=== PATIENT | female | born 1970 | race Hispanic/Latino ===

== ENCOUNTER 2018-11-19 07:24 | Emergency (ER) | payer OTHER ==
[~2018-11-19 07:24] MED LIST: CLON0.5T23 PO; LEVO100T12 PO
[2018-11-19] MEDS ORDERED: TETRACAINE HCL 0.5% 4 ML OPHTH SOLN ONE (07:39)
[2018-11-19] MEDS ORDERED: NA BORATE/BORIC AC/H2O/NACL 120 ML OPHTH IRRIG SOLN ONE (07:40)
[2018-11-19] MEDS ORDERED: FLUORESCEIN SODIUM 1 STRIP STRIP ONE (07:40)
== END 2018-11-19 08:03 | disposition home or self-care (01) ==
LOC: EDH 07:24
DX: H10.13 Acute atopic conjunctivitis, bilateral (principal); E07.9 Disorder of thyroid, unspecified

== ENCOUNTER 2019-03-05 15:47 | Inpatient (IN) | payer OTHER ==
[2019-03-05 16:26] LABS: BASOPHILS % (AUTO) 0.4 % (0.0-5.0); EOSINOPHILS % (AUTO) 0.1 % (0.0-8.0); HEMATOCRIT 37.9 % (36-48); LYMPHOCYTES % (AUTO) 7.8 % (21.0-51.0); MEAN CORPUSCULAR HEMOGLOBIN 30.5 pg (27.0-33.0); MEAN CORPUSCULAR HGB CONC 33.8 g/dL (32.0-36.0); MEAN CORPUSCULAR VOLUME 90.5 fL (79-99); MONOCYTES % (AUTO) 6.8 % (3.0-13.0); NEUTROPHILS % (AUTO) 84.9 % (40.0-77.0); PLATELET COUNT (AUTO) 326 K/uL (130-400); RED BLOOD CELL COUNT(AUTO) 4.19 MIL/uL (4.00-5.50); RED CELL DISTRIBUTION WIDTH 12.6 % (11.0-15.5); WHITE BLOOD COUNT (AUTO) 13.3 K/uL (4.8-10.8)
[2019-03-05 16:33] LABS: BILIRUBIN,URINE Negative (NEGATIVE); COLOR,URINE Yellow (YELLOW); GLUCOSE, URINE (UA) Negative (NEGATIVE); KETONES,URINE Negative (NEGATIVE); LEUKOCYTE ESTERASE ,URINE Large (NEGATIVE); NITRATE,URINE Negative (NEGATIVE); OCCULT BLOOD,URINE Trace (NEGATIVE); PROTEIN,URINE Negative (NEGATIVE); UROBILINOGEN,URINE 0.2 mg/dL (0.2-1.0)
[2019-03-05 16:36] LABS: CREATININE 0.8 mg/dL (0.5-1.5); POTASSIUM 3.7 mmol/L (3.5-5.1)
[2019-03-05 16:40] LABS: ALBUMIN 3.8 g/dL (3.5-5.0); APPEARANCE,URINE SLIGHTLY CLOUDY (CLEAR); BILIRUBIN,DIRECT 0.1 mg/dL (0.0-0.3); BILIRUBIN,TOTAL 0.6 mg/dL (0.2-1.0); TOTAL PROTEIN, SERUM 7.8 g/dL (6.0-8.3)
[2019-03-05 16:43] LABS: BACTERIA,URINE Rare /HPF (None Seen); SQUAMOUS EPITHELIAL CELL,UR Few /HPF (0-2)
[2019-03-05] MEDS ORDERED: KETOROLAC TROMETHAMINE 30MG/ML ONE (17:09)
[2019-03-05] MEDS ORDERED: SODIUM CHLORIDE 0.9% 1000ML 1,000 ML IV ONE (17:09)
[2019-03-05] MEDS ORDERED: METRONIDAZOLE 500MG/100ML BAG 100 ML ONE (20:05)
[2019-03-05] MEDS ORDERED: LEVOFLOXACIN 500 MG/D5W 100 ML 100 ML ONE (21:26)
[2019-03-05] MEDS ORDERED: SODIUM CHLORIDE 0.9% 1000ML 1,000 ML IV SCH (22:51)
[2019-03-05] MEDS: METRONIDAZOLE 500MG/100ML BAG 100 ML IV SCH (23:00)
[2019-03-05] MEDS ORDERED: LEVOFLOXACIN 500 MG/D5W 100 ML 100 ML IV SCH (23:00)
[2019-03-05] MEDS ORDERED: ACETAMINOPHEN 325 MG TAB PO PRN ×2 (23:00)
[2019-03-05] MEDS ORDERED: ONDANSETRON HCL 4 MG/2 ML VIAL IV PRN (23:00)
[2019-03-06] MEDS ORDERED: METRONIDAZOLE 500MG/100ML BAG 100 ML ONE (05:08)
[2019-03-06] MEDS ORDERED: SODIUM CHLORIDE 0.9% 1000ML 1,000 ML IV ONE (05:08)
[2019-03-06] MEDS: METRONIDAZOLE 500MG/100ML BAG 100 ML IV SCH (07:00)
[2019-03-06] MEDS ORDERED: METR500T PO (08:20)
[2019-03-06] MEDS ORDERED: LEVO500T2 PO (08:20)
[2019-03-06] MEDS ORDERED: LORA1TAB3 PO (08:59)
[2019-03-06] MEDS ORDERED: LEVO112T7 PO (08:59)
[2019-03-06] MEDS ORDERED: ENOXAPARIN SODIUM 30 MG/0.3 ML SQ SCH (09:00)
[2019-03-06] MEDS ORDERED: FAMOTIDINE/PF 20 MG/2 ML VIAL IV SCH (09:00)
--- NOTE | 2019-03-06 09:25 | NUR ---
DISCHARGE INSTRUCTIONS REVIEWED DISCHARGE INSTRUCTIONS AND PRESCRIPTIONS GIVEN TO PT. PIV REMOVED BY ED NURSE.
== END 2019-03-06 11:20 | disposition home or self-care (01) | DRG 392 ==
LOC: EDH 15:47 → EDHIP 22:30 → 4BH 03-06 08:04
PROVIDERS: ADMIT Internal Medicine; ATTEND Internal Medicine
DX: K57.32 Diverticulitis of large intestine without perforation or abscess without bleeding (principal); N39.0 Urinary tract infection, site not specified; F41.9 Anxiety disorder, unspecified; E03.9 Hypothyroidism, unspecified; Z83.3 Family history of diabetes mellitus; Z82.49 Family history of ischemic heart disease and other diseases of the circulatory system
CPT/HCPCS: 36415; 74176; 80048; 80076; 81001; 81025; 82270; 82550; 83690; 84484; 85025; 87046; 87177; 87324; 93005; G0378; J1650; J1885; J1956; J3490; J7030

== ENCOUNTER 2023-07-25 12:00 | Emergency (ER) | payer BC, OTHER ==
[~2023-07-25] VITALS: Ht 170.2 cm; Wt 96.6 kg
[~2023-07-25 12:00] MED LIST changes: +LEVO112T7 PO; +LEVO500T2 PO; +LORA1TAB3 PO; +METR500T PO
[2023-07-25 12:54] LABS: MEAN CORPUSCULAR HGB CONC 33.3 g/dL (32.0-36.0); MEAN CORPUSCULAR VOLUME 89.9 fL (79-99); PLATELET COUNT (AUTO) 252 K/uL (130-400); RED BLOOD CELL COUNT(AUTO) 4.34 MIL/uL (4.00-5.50); RED CELL DISTRIBUTION WIDTH 12.5 % (11.0-15.5); WHITE BLOOD COUNT (AUTO) 5.8 K/uL (4.8-10.8)
[2023-07-25 13:02] LABS: CREATININE 0.8 mg/dL (0.5-1.5)
[2023-07-25 13:06] LABS: ALBUMIN 3.7 g/dL (3.5-5.0); BILIRUBIN,TOTAL 0.5 mg/dL (0.2-1.0); TOTAL PROTEIN, SERUM 7.5 g/dL (6.0-8.3)
[2023-07-25] MEDS ORDERED: 0.9%NACL 1000ML 1,000 ML IV ONE (13:30)
[2023-07-25] MEDS ORDERED: CEFTRIAXONE 2GM VIAL IVPB ONE (13:30)
[2023-07-25 14:21] VITALS: BP 121/69; PULSE 52; RESP 17; O2SAT 99
[2023-07-25 14:26] LABS: BAND NEUTROPHILS % (MANUAL) 1 % (0-2); EOSINOPHILS % (MANUAL) 1 % (1-6); LYMPHOCYTES % (MANUAL) 40 % (22-44); MAN.DIFF COMMENT-IMPRESSION MANUAL DIFFERENTIAL; MONOCYTES % (MANUAL) 3 % (2-9); PLATELET MORPHOLOGY COMMENT ADEQUATE; SEGMENTED NEUTROPHILS % 55 % (40-70); TOTAL CELLS COUNTED 100; WBC MORPHOLOGY CONSISTENT W/DIFF
[2023-07-25] MEDS ORDERED: CEPH500B PO (15:23)
== END 2023-07-25 15:34 | disposition home or self-care (01) ==
LOC: EDH 12:00
DX: L03.115 Cellulitis of right lower limb (principal); E03.9 Hypothyroidism, unspecified; F41.9 Anxiety disorder, unspecified; F32.A Depression, unspecified; Z79.899 Other long term (current) drug therapy; Z98.890 Other specified postprocedural states; W57.XXXA Bitten or stung by nonvenomous insect and other nonvenomous arthropods, initial encounter; Y93.89 Activity, other specified; Y92.89 Other specified places as the place of occurrence of the external cause; Y99.8 Other external cause status
CPT/HCPCS: 99284; 96365; 80053; 85025; 36415; 73562; J7030; J0696

== ENCOUNTER 2024-11-08 10:13 | Emergency (ER) | payer BC ==
[~2024-11-08] VITALS: Ht 170.2 cm; Wt 98.9 kg
[~2024-11-08 10:13] MED LIST changes: +CEPH500B PO
--- NOTE | 2024-11-08 10:27 | ERN ---
ED Note History of Present Illness Stated Complaint: ANIMAL BITE Chief Complaint: Animal Bite Time Seen by MD: 10:15 Time Seen by Midlevel: 10:15 Dictation: The patient is 53-year-old female with a history of anxiety who presents to the emergency department after being bitten by her own dog onset 30 minutes ago. Patient reports that her dog was coming back from the vet and while getting out of the car encounter another dog so she attempted to stopped him from fighting with the other dog when it bit her. Reports dog up-to-date with vaccines. Allergies: Coded Allergies: No Known Drug Allergies (Unverified Allergy, Unknown, 04/18/17) Home Meds Active Scripts Neomy Sulf/Bacitrac Zn/Poly (Neosporin Ointment) 3.5 Mg-400 Unit-5,000 Unit/Gram Oint...g., 1 APPL TP BID for 7 Days, #14.2 GM 0 Refills Prov:FELA WALL [facility] 11/08/24 Ibuprofen (Ibuprofen 800 mg Tab) 800 Mg Tab, 800 MG PO Q8H PRN for fever or pain, #15 TAB 0 Refills Prov:FELA WALL [facility] 11/08/24 Amoxicillin/Potassium Clav (Amox Tr-K Clv 875-125 mg Tab) 875 Mg-125 Mg Tablet, 1 EACH PO BID for 3 Days, #6 TAB 0 Refills Prov:WALLFELA [facility] 11/08/24 Cephalexin Monohydrate (Keflex) 500 Mg Cap, 500 MG PO QID for 7 Days, #28 CAP 0 Refills Prov:JEN CANNON Sr., MD 07/25/23 Metronidazole (Flagyl) 500 Mg Tablet, 500 MG PO TID for 10 Days, #30 TAB Prov:MUNIR FAGAN Jr., MD 03/06/19 Levofloxacin (Levaquin) 500 Mg Tablet, 500 MG PO DAILY for 10 Days, #10 TAB Prov:MUNIR FAGAN Jr., MD 03/06/19 Reported Medications Lorazepam (Lorazepam) 1 Mg Tablet, 1 MG PO HS, TAB 03/06/19 Levothyroxine Sodium (Levothyroxine Sodium) 112 Mcg Tablet, 112 MCG PO ACBKFST, TAB 03/06/19 Clonazepam (Clonazepam) 0.5 Mg Tab.rapdis, 0.5 MG PO DAILY PRN for ANXIETY/AGITATION, TAB 04/18/17 Levothyroxine Sodium (Levothyroxine Sodium) 100 Mcg Tablet, 100 MCG PO DAILY, TAB 04/18/17 Past Medical History Past Medical History: Anxiety, Depression, Hypothyroid Surgical History: Other Surgical History Other: BACK SX RN Note Reviewed/Agreed w/PFSH: Yes Review of System Dictation Constitutional: Negative for fever,chills, and weight loss Eyes: Negative for injury, pain,redness, and discharge ENT: Negative for injury,pain or swelling Cardiovascular: Negative for chest pain, palpitations, and edema Respiratory: Negative for shortness of breath, cough, and wheezing, Abdomen/GI: Negative for abdominal pain, nausea, vomiting, diarrhea, and constipation Back: Negative for injury and pain : Negative for injury, bleeding and discharge MS/Extremity: Negative for injury and deformity Skin: Negative for rash, and discoloration positive for dog bite Neuro: Negative for headache, weakness, numbness, tingling, and seizure Psych: Negative for suicide ideation, homicidal ideation, and hallucinations Initial Vital Sign VS Vital Signs Date Time Temp Pulse Resp B/P (MAP) Pulse Ox O2 Delivery O2 Flow Rate FiO2 11/08/24 10:23 98.1 113 20 135/91 95 Room Air Physical Exam Dictation Vital Signs reviewed General Appearance: Alert, oriented x 3, no acute distress, well developed, nourished. Head and Face: non-traumatic. Eyes: PERRL, pink conjunctivas, eyelid no trauma, anterior chamber with arcus senilis. Ears: Pinnas intact and no signs of trauma or erythema ear canals clear and no d ischarge TM no erythema Nose: No discharge, no bleeding. Oropharynx: Mouth normal, tongue pink. pharynx clear,no erythema, tonsils no exudates, no abscesses noted, mucous membrane moist Neck: Supple, non-tender, no thyromegaly, no masses, no JVD, no bruits Breast:Deferred Chest:No tenderness, no crepitus, no paradoxical movement, no retractions Lungs:Clear, well-ventilated, symmetric, no rales, no wheezing, no rhonchi, no stridor, good breath sounds bilaterally Heart: Regular rate, regular rhythm, no murmur, no gallops Vascular: no peripheral edema, Abdomen: Soft, positive bowel sounds, nondistended, no guarding, nontender, no rebound, no masses no hepatomegaly, no splenomegaly, no Chan's sign, no hernias. Rectal: Deferred Genital: Deferred Neurological: Normal speech, motor function intact, sensory function intact Musculoskeletal: Neck nontender, full range of motion, back nontender, full range of motion, Extremities: nontender, full range of motion Skin: Color pink, dry, no turgor, no rash,no contusions. 2 cm laceration to palm of hand, two abrasions to right wrist, 0.5 cm laceration to right dorsal forearm, abrasions to lateral right forearm. No active bleeding Lymphatic: Deferred Results (Laboratory/Radiology) Laboratory/Radiology REASON: dog bite ORDERING PHYSICIAN: FELA WALL [employer] FORMER PROCEDURE: FORARMR - FOREARM 2VWS RT FOREARM 2VWS RT HISTORY: Dogbite COMPARISON: None TECHNIQUE: 2 images of right forearm were obtained. FINDINGS: There is no acute displaced fracture or dislocation. Degenerative changes are seen. No evidence of radiopaque foreign body is seen. IMPRESSION: 1. Findings as described above. REASON: dog bite ORDERING PHYSICIAN: FELA WALL [employer] FORMER PROCEDURE: HAND 3V RT - HAND 3+VWS RT HAND 3+VWS RT HISTORY: Dogbite COMPARISON: None TECHNIQUE: 3 images of right hand were obtained. FINDINGS: There is no acute displaced fracture or dislocation. No evidence of radiopaque foreign body is seen. Degenerative changes are seen. IMPRESSION: 1. Findings as described above. Labs Reviewed?: Yes ED Course ED Course Orders Procedure Category Date Status Time Hand 3+Vws Rt RAD 11/08/24 Resulted 10:21 Forearm 2vws Rt RAD 11/08/24 Resulted 10:21 Diph,Pertuss(Acell),Tet PHA 11/08/24 Complete Vac/Pf (Tdap) 10:30 Hydrocodone/Apap PHA 11/08/24 Complete 5/325 ([place] 5/325mg) 10:30 Wound Care (Er) CPOE 11/08/24 Transmitted 10:21 Tetanus,Diphtheria PHA 11/08/24 Complete Tox [Adult] (Diphther 11:04 Lidocaine Hcl 1% 20ml PHA 11/08/24 Complete Vial (Lidocaine Hc 11:30 Laceration Tray Set CPOE 11/08/24 Transmitted Up (Er) 11:08 Amox/Clav 875/125mg PHA 11/08/24 Complete Tab (Augmentin 875-1 11:30 Neomy PHA 11/08/24 Complete Sulf/Bacitra/Polymyxin 11:30 Tetanus,Diphtheria PHA 11/08/24 Complete Tox [Adult] (Diphther 11:30 Current Medications Medications (Trade) Dose Ordered Sig/José Luis Route PRN Reason Start Time Stop Time Status Last Admin Dose Admin Acetaminophen/ Hydrocodone Bitart (NORco 5/325MG) 1 tab ONCE ONCE PO 11/08/24 10:30 11/08/24 10:31 DC 11/08/24 11:02 Amoxicillin/ Clavulanate Potassium (Augmentin 875-125 Tablet) 1 each ONCE ONCE PO 11/08/24 11:30 11/08/24 11:31 DC 11/08/24 11:20 Diphtheria/ Tetanus/Acell Pertussis (Tdap) 0.5 ml ONCE ONCE IM 11/08/24 10:30 11/08/24 10:31 DC Lidocaine HCl (Lidocaine HCl 1% 20ml Vial) 10 ml ONCE ONCE INJ 11/08/24 11:30 11/08/24 11:31 DC Neomycin/ Polymyxin/ Bacitracin (Triple Antibiotic Ointment) 1 appl ONCE ONCE TP 11/08/24 11:30 11/08/24 11:31 DC 11/08/24 11:20 Tetanus/ Diphtheria Toxoids Adsorbed (DiphthERIA-teTANUS TOXOID [ADULT]/ DECAVAC) 0.5 ml ONCE ONCE IM 11/08/24 11:30 11/08/24 11:31 DC 11/08/24 11:16 Tetanus/ Diphtheria Toxoids Adsorbed (DiphthERIA-teTANUS TOXOID [ADULT]/ DECAVAC) 0.5 ml STK-MED ONCE IM 11/08/24 11:04 11/08/24 11:04 DC Vital Signs Date Time Temp Pulse Resp B/P (MAP) Pulse Ox O2 Delivery O2 Flow Rate FiO2 11/08/24 10:23 98.1 113 20 135/91 95 Room Air Medical Decision Making MDM The patient is 53-year-old female with a history of anxiety who presents to the emergency department after being bitten by her own dog onset 30 minutes ago. Patient reports that her dog was coming back from the vet and while getting out of the car encounter another dog so she attempted to stopped him from fighting with the other dog when it bit her. Reports dog up-to-date with vaccines. X-rays showed no acute fractures or foreign bodies. Patient with full range of motion to hand. 2 cm laceration to palm of hand extensively cleaned and sutured. Patient with two abrasions to wrist, puncture wound to right forearm, abrasion to forearm. Wounds were extensively cleaned. No need to regards to other wounds. Patient given tetanus, Augmentin. Patient instructed to follow up with PCP and animal control to monitor her dog. Differential diagnosis: Laceration, retained foreign body, hand fracture, forearm fracture Need for hospitalization: Patient does not meet criteria for hospitalization. There are no social concerns with this patient. Procedure Procedure Dictation: Time and Date Performed:11/08/2024 INDICATION: Laceration Location: Right palm of hand Informed consent was obtained. Pre-procedure time out was obtained. Anesthetic: 1% lidocaine Manual prep of skin and wound was done with hibiclens. Foreign Body: NO foreign bodies were identified. Length Repaired:2cm Suture used: Ethilon 4 # of simple sutures: Three Aseptic technique was used during the entire procedure. Wound Location: upper extremity Wound's Depth, Shape: superficial, irregular Wound Explored: clean Irrigated w/ Saline (ccs): 50 Betadine Prep?: Yes Anesthesia: 1% Lidocaine Wound Debrided: minimal Wound Repaired With: sutures Suture Size/Type: 4:0, nylon Number of Sutures: 3 DX & DISP Disposition: Discharge Departure Impression: Primary Impression: Dog bite Additional Impressions: Dog bite of arm, Dog bite of hand Condition: Stable Scripts Neomy Sulf/Bacitrac Zn/Poly (Neosporin Ointment) 3.5 Mg-400 Unit-5,000 Unit/Gram Oint...g. 1 APPL TP BID for 7 Days, #14.2 GM 0 Refills Prov: FELA WALL [employer] 11/08/24 Ibuprofen (Ibuprofen 800 mg Tab) 800 Mg Tab 800 MG PO Q8H PRN for fever or pain, #15 TAB 0 Refills Prov: FELA WALL [employer] 11/08/24 Amoxicillin/Potassium Clav (Amox Tr-K Clv 875-125 mg Tab) 875 Mg-125 Mg Tablet 1 EACH PO BID for 3 Days, #6 TAB 0 Refills Prov: FELA WALL [employer] 11/08/24 Additional Instructions: Keep your stitches clean and dry. Do not put your stitches under water, such as in a bath, pool, or ford. This can slow healing and raise your chance of getting an infection. Avoid activities or sports that could hurt the area of your stitches for 1-2 weeks. You should call your doctor if you develop any fever, redness or swelling around the cut, or pus draining from the cut. Your sutures will need to be removed in 10-14 days. FOLLOW-UP WITH PRIMARY CARE PROVIDER IN 1 TO 2 DAYS. TAKE MEDICATIONS DIRECTED HERE IN THE EMERGENCY ROOM. OKAY TO CONTINUE HOME MEDICATIONS UNLESS OTHERWISE DISCUSSED DURING YOUR VISIT IN THE EMERGENCY ROOM TODAY. RETURN TO YOUR NEAREST EMERGENCY ROOM IF SYMPTOMS WORSEN OR IF THERE IS NO IMPROVEMENT. CALL 911 IF YOU NEED IMMEDIATE ASSISTANCE. TAKE TYLENOL OR MOTRIN [id number] NEEDED AND IF NO CONTRAINDICATIONS ARE PRESENT. INCREASE ORAL HYDRATION. A WOUND CULTURE OR URINE CULTURE WAS ORDERED HERE IN THE EMERGENCY ROOM DEPARTMENT PLEASE FOLLOW-UP WITH PRIMARY CARE PROVIDER AND ADVISE THEM TO GET REPEAT PORTS FROM OUR FACILITY. IF YOU HAD ANY ELENO WRAP/SPLINTS THAT WERE APPLIED HERE, PLEASE DO NOT REMOVE THEM UNTIL YOU SEE YOUR PRIMARY CARE OR SPECIALTY. Referrals: QUINTIN BONILLA (PCP) Time of Disposition: 11:55 I have reviewed the case, and I agree with, Diagnosis and Plan FELA WALL Nov 08, 2024 10:27
[2024-11-08] MEDS: HYDROcodone/APAP 5/325 1 TAB TABLET PO ONE (11:02)
--- NOTE | 2024-11-08 11:08 | HMCIMG ---
FOREARM 2VWS RT HISTORY: Dogbite COMPARISON: None TECHNIQUE: 2 images of right forearm were obtained. FINDINGS: There is no acute displaced fracture or dislocation. Degenerative changes are seen. No evidence of radiopaque foreign body is seen. IMPRESSION: 1. Findings as described above.
--- NOTE | 2024-11-08 11:08 | HMCIMG ---
HAND 3+VWS RT HISTORY: Dogbite COMPARISON: None TECHNIQUE: 3 images of right hand were obtained. FINDINGS: There is no acute displaced fracture or dislocation. No evidence of radiopaque foreign body is seen. Degenerative changes are seen. IMPRESSION: 1. Findings as described above.
[2024-11-08] MEDS: teTANUS/diphthERIA TOXOID [ADULT] 0.5 ML VIAL IM ONE ×2 (11:16)
[2024-11-08] MEDS: DIPH,PERTUSS(ACELL),TET VAC/PF 0.5 ML VIAL IM ONE (11:17)
[2024-11-08] MEDS: AMOX/CLAV 875/125MG TAB PO ONE (11:20)
[2024-11-08] MEDS: NEOMY SULF/BACITRA/POLYMYXIN B 1 EACH PACKET TP ONE (11:20)
--- NOTE | 2024-11-08 11:24 | NUR ---
WOUND CARE TO RT HAND AND SOAKED IN BETADINE,PT TOLERATING WELL. LACERTION TRAY SET UP IN TRIAGE 2
[2024-11-08] MEDS ORDERED: LIDOCAINE HCL 1% 20 ML VIAL INJ ONE (11:30)
[2024-11-08] MEDS ORDERED: NEOM28.36 TP (11:58)
[2024-11-08] MEDS ORDERED: AMOX1TAB16 PO (11:58)
[2024-11-08] MEDS ORDERED: IBUP-2077 PO (11:58)
[2024-11-08 12:18] VITALS: BP 117/84; PULSE 83; RESP 20; TEMP 98; O2SAT 99
== END 2024-11-08 12:18 | disposition home or self-care (01) ==
LOC: EDH 10:13
DX: S61.411A Laceration without foreign body of right hand, initial encounter (principal); S51.811A Laceration without foreign body of right forearm, initial encounter; E03.9 Hypothyroidism, unspecified; F41.9 Anxiety disorder, unspecified; Z79.890 Hormone replacement therapy; Z98.890 Other specified postprocedural states; W54.0XXA Bitten by dog, initial encounter; Y93.89 Activity, other specified; Y92.89 Other specified places as the place of occurrence of the external cause; Y99.8 Other external cause status
CPT/HCPCS: 12001; 73090; 73130; 90471; 90714; 90715; 99284